=== PATIENT | male | born 1995 | race Caucasian/White ===

== ENCOUNTER 2017-02-25 23:23 | Emergency (ER) | payer SELFPAY | END 2017-02-26 01:05 | disposition home or self-care (01) | LOC: ER 23:23 | DX: J06.9 Acute upper respiratory infection, unspecified (principal); J02.9 Acute pharyngitis, unspecified; H92.01 Otalgia, right ear; Z98.890 Other specified postprocedural states | CPT/HCPCS: 99282 ==